=== PATIENT | male | born 1960 | race Caucasian/White ===

== ENCOUNTER 2021-01-19 10:17 | Emergency (ER) | payer BC, OTHER ==
[~2021-01-19] VITALS: Ht 177.8 cm; Wt 86.2 kg
--- NOTE | 2021-01-19 10:24 | NUR ---
PT IS IN ROOM #2B. DR MARTIN EVALUATED THE PT.
[2021-01-19] MEDS ORDERED: HYDROMORPHONE 1 MG/1 ML DISP.SYRIN IV ONE ×2 (11:00→11:45)
[2021-01-19] MEDS ORDERED: ONDANSETRON 4 MG/2 ML VIAL IV ONE (11:00)
[2021-01-19] MEDS ORDERED: IV NORMAL SALINE 1000 ML BAG IV ONE ×3 (11:00→13:30)
[2021-01-19] MEDS ORDERED: HYDROMORPHONE 1 MG/1 ML DISP.SYRIN ONE ×2 (11:03→11:45)
[2021-01-19] MEDS ORDERED: ONDANSETRON 4 MG/2 ML VIAL ONE (11:03)
[2021-01-19 11:42] LABS: HEMATOCRIT 43.1 % (36.7-47.1); MEAN CORPUSCULAR HEMOGLOBIN 28.9 uug (23.8-33.4); MEAN CORPUSCULAR VOLUME 84.3 fL (73.0-96.2); PLATELET COUNT (AUTO) 234 K/uL (152-348)
[2021-01-19 11:45] LABS: POTASSIUM 4.4 mmol/L (3.5-5.1)
[2021-01-19 11:47] LABS: *BILIRUBIN,URIN NEGATIVE (NEGATIVE); *CLARITY,URINE CLEAR (CLEAR); *COLOR,URINE YELLOW (YELLOW); *KETONES,URINE NEGATIVE (NEGATIVE); LEUKOCYTE ESTERASE ,URINE NEGATIVE (NEGATIVE); NITRITE, URINE NEGATIVE (NEGATIVE); UGLUCOSE NEGATIVE (NEGATIVE)
[2021-01-19 11:48] LABS: *BLOOD, URINE TRACE (NEGATIVE)
[2021-01-19 11:50] LABS: BILIRUBIN,DIRECT 0.2 mg/dL (0.0-0.2); BILIRUBIN,TOTAL 0.6 mg/dL (0.2-1.0); TOTAL PROTEIN, SERUM 7.1 g/dL (6.4-8.2)
[2021-01-19] MEDS ORDERED: TAMSULOSIN HCL 0.4 MG CAP.SR.24H PO ONE (12:30)
[2021-01-19] MEDS ORDERED: TAMSULOSIN HCL 0.4 MG CAP.SR.24H ONE (12:44)
[2021-01-19 13:22] LABS: RBC,URINE 0-3 /HPF (0-3); WBC,URINE 0-3 /HPF (0-3)
[2021-01-19 13:24] LABS: BACTERIA,URINE FEW /HPF (NONE SEEN); SQUAMOUS EPITHELIAL CELL,UR FEW /HPF (NONE SEEN)
[2021-01-19] MEDS ORDERED: KETOROLAC TROMETHAMINE 30 MG INJ IVP ONE (13:30)
[2021-01-19] MEDS ORDERED: KETOROLAC TROMETHAMINE 30 MG INJ ONE (13:54)
[2021-01-19] MEDS ORDERED: ONDA8TAB13 PO (14:18)
[2021-01-19] MEDS ORDERED: HYDR-3980 PO (14:18)
[2021-01-19] MEDS ORDERED: TAMS-3 PO (14:18)
--- NOTE | 2021-01-19 14:32 | NUR ---
PT WAS D/C'd TO HOME AFTER DR MARTIN RE-EVALUATION. D/C INSTRUCTIONS GIVEN TO THE PT BY DR MARTIN.
[2021-01-19 14:36] VITALS: BP 128/71
== END 2021-01-19 14:37 | disposition home or self-care (01) ==
LOC: ER 10:17
DX: N13.2 Hydronephrosis with renal and ureteral calculous obstruction (principal); Z82.49 Family history of ischemic heart disease and other diseases of the circulatory system; D72.829 Elevated white blood cell count, unspecified
CPT/HCPCS: 36415; 74176; 80048; 80076; 81001; 85025; 96361; 96374; 96375; 99285; J1170 ×2; J1885; J2405; A4663; J7030